=== PATIENT | male | born 1965 | race Hispanic/Latino ===

== ENCOUNTER 2017-06-22 10:55 | Observation (INO) | payer MEDICAID, OTHER ==
[2017-06-22 12:47] LABS: BASO # 0.1 K/uL (0.0-0.2); BASO % 0.6 % (0.0-2.0); EOS # 0.1 K/uL (0.0-0.7); EOS % 0.7 % (0.0-4.0); HEMOGLOBIN 14.5 g/dL (12.0-18.0); LYMPH # 1.6 K/uL (1.0-4.3); LYMPH % 10.1 % (20.0-40.0); MEAN CELL VOLUME 84.9 fl (80.0-94.0); MEAN CORPUSCULAR HEMOGLOBIN 28.5 pg (27.0-31.0); MEAN CORPUSCULAR HGB CONC 33.5 g/dL (33.0-37.0); MEAN PLATELET VOLUME 10.3 fl (7.2-11.7); MONO # 0.8 K/uL (0.0-0.8); MONO % 5.1 % (0.0-10.0); NEUT # 13.5 K/uL (1.8-7.0); NEUT % 83.5 % (50.0-75.0); NRBC % 0.1 % (0.0-0.0); RBC 5.11 Mil/uL (4.40-5.90); RED CELL DISTRIBUTION WIDTH 14.9 % (11.5-14.5); WHITE BLOOD COUNT 16.2 K/uL (4.8-10.8)
[2017-06-22 12:55] LABS: BLOOD UREA NITROGEN 20 mg/dl (9-20); CALCIUM 9.7 mg/dL (8.4-10.2); GFR AFRICAN-AMERICAN > 60; GFR NON-AFRICAN AMERICAN > 60
--- NOTE | 2017-06-22 13:06 | RAD ---
PROCEDURE: CHEST RADIOGRAPH, 1 VIEW HISTORY: chest pain COMPARISON: 2015 FINDINGS: LUNGS: Clear. PLEURA: No pneumothorax or pleural fluid seen. CARDIOVASCULAR: Heart is normal in size. Aorta is unchanged. No hilar enlargement seen. OSSEOUS STRUCTURES: No significant abnormalities. VISUALIZED UPPER ABDOMEN: Normal. OTHER FINDINGS: None. IMPRESSION: No active disease.
--- NOTE | 2017-06-22 15:11 | ED PDOC ---
HPI: Chest Pain Time Seen by Provider: 06/22/17 11:27 Chief Complaint (Nursing): Chest Pain Chief Complaint (Provider): Chest Pain History Per: Patient History/Exam Limitations: no limitations Onset/Duration Of Symptoms: Hrs Current Symptoms Are (Timing): Gone Now Severity: None Quality: "Pain" Associated Symptoms: denies: Nausea, Dyspnea Exacerbating Factors: None Alleviating Factors: None Additional Complaint(s): 51 year old male presents to the emergency department complaining of chest pain which began around 8 this morning. The patient states that after he woke up he began having left sided chest pain which radiated to his left arm. He states that the pain subsided 3 hours before he came to the emergency department. Patient states he has no history of chest pain and has never felt pain as severe as this. Denies fever, shortness of breath, cough, dizziness, leg swelling. Patient further reports that he recently moved to a new apartment 2 weeks ago and he has to climb 4 flights of stairs everyday. He states that after climbing the stairs he becomes very short of breath. Of note: Patient is usually seen by the [facility] but has not been there recently. Past Medical History Reviewed: Historical Data, Nursing Documentation, Vital Signs Vital Signs: Last Vital Signs Temp 98.3 F 06/23/17 13:00 Pulse 80 06/24/17 20:53 Resp 20 06/23/17 13:00 BP 140/88 06/23/17 13:00 Pulse Ox 95 06/24/17 20:53 - Medical History PMH: Kidney Stones Denies: Asthma, Bronchitis, CHF, COPD, HIV, Chronic Kidney Disease, Seizures - Surgical History Surgical History: Hernia Repair - Family History Family History: States: Unknown Family Hx - Social History Current smoker - smoking cessation education provided: Yes (Current Some Days Smoker) Ex-Smoker (has not smoked in the last 12 months): Yes Alcohol: Social Drugs: Other (yes) - Home Medications Home Medications: Ambulatory Orders Medication Instructions Recorded Aspirin [Ecotrin] 81 mg PO DAILY #30 tabec 06/23/17 amLODIPine [Norvasc] 5 mg PO DAILY #30 tab 06/23/17 - Allergies Allergies/Adverse Reactions: Allergies Allergy/AdvReac Type Severity Reaction Status Date / Time No Known Allergies Allergy Verified 02/18/15 08:48 ILIANA Risk Score for UA/NSTEMI - ILIANA Risk Score Age > 64: NO 3 or more CAD Risk Factors: NO Known CAD (Stenosis greater than 50%): NO Aspirin use in past 7 days: NO Severe Angina: YES EKG ST changes greater than 0.5mm: NO Positive Cardiac Marker: NO ILIANA Score: 1 Risk %: 5% Wells Criteria for PE - Wells Criteria for Pulmonary Embolism Clinical Signs and Symptoms of DVT: No P.E is #1 Diagnosis, or Equally Likely: No Heart Rate >100: No Immobilization at least 3 days;Surgery previous 4 weeks: No Previous, objectively diagnosed PE or DVT: No Hemoptysis: No Malignancy w/treatment within 6 months, or palliative: No Total Score: 0 Review of Systems Constitutional: Negative for: Fever, Chills Cardiovascular: Positive for: Chest Pain. Negative for: Palpitations Respiratory: Negative for: Shortness of Breath Musculoskeletal: Positive for: Other (denies leg swelling) Neurological: Negative for: Headache, Dizziness Physical Exam - Reviewed Nursing Documentation Reviewed: Yes Vital Signs Reviewed: Yes - Physical Exam Appears: Positive for: Non-toxic, No Acute Distress Head Exam: Positive for: ATRAUMATIC, NORMAL INSPECTION, NORMOCEPHALIC Skin: Positive for: Normal Color, Warm, Dry. Negative for: Rash Eye Exam: Positive for: Normal appearance, EOMI, PERRL. Negative for: Nystagmus ENT: Positive for: Normal ENT Inspection. Negative for: Nasal Congestion, Tonsillar Exudate, Tonsillar Swelling Neck: Positive for: Normal, Painless ROM, Supple Cardiovascular/Chest: Positive for: Regular Rate, Rhythm, Chest Non Tender. Negative for: Gallop, Murmur, Tachycardia, Irregularly Irregular Respiratory: Positive for: Normal Breath Sounds. Negative for: Crackles, Rales , Rhonchi, Wheezing, Respiratory Distress Gastrointestinal/Abdominal: Positive for: Normal Exam, Bowel Sounds, Soft. Negative for: Tenderness, Mass, Guarding, Rebound Back: Positive for: Normal Inspection. Negative for: L CVA Tenderness, R CVA Tenderness Extremity: Positive for: Normal ROM. Negative for: Tenderness, Deformity, Swelling Neurologic/Psych: Positive for: Alert, Oriented, Gait. Negative for: Motor/ Sensory Deficits - Laboratory Results Result Diagrams: 06/23/17 10:28 06/23/17 10:28 - ECG ECG Rhythm: Positive for: Normal QRS, Normal ST Segment, Sinus Rhythm, Nonspecific Changes (Non specific St changes) Rate: 80 O2 Sat by Pulse Oximetry: 95 (RA) Pulse Ox Interpretation: Normal Medical Decision Making Medical Decision Makin Initial Impression 51 year old male presenting with chest pain Differential: ACS, Pulmonary embolism other cardiac and pulmonary pathologies considered but not listed Initial Plan: * EKG * BMP * Troponin * Cardiology * Consult * CBC * CXR * Call Cardiology Consult * Reevaluation 1059 EKG performed: Normla sinus rhythm, normal QRS non specific ST changes, rats 80bpm 1304 PROCEDURE: Chest Xray HISTORY: chest pain COMPARISON: 2014 FINDINGS: LUNGS: Clear. PLEURA: No pneumothorax or pleural fluid seen. CARDIOVASCULAR: Heart is normal in size. Aorta is unchanged. No hilar enlargement seen. OSSEOUS STRUCTURES: No significant abnormalities. VISUALIZED UPPER ABDOMEN: Normal. OTHER FINDINGS: None. IMPRESSION: No active disease. [address] Ellis who agrees to admit patient to telemetry for chest pain. Patient was given aspirin. Chest Xray and labs reviewed. Documented by Jyoti Price acting as a scribe for Efren Maya MD. All medical record entries made by the Scribe were at my direction and personally dictated by me. I have reviewed the chart and agree that the record accurately reflects my personal performance of the history, physical exam, medical decision making, and the department course for this patient. I have also personally directed, reviewed, and agree with the discharge instructions and disposition. Disposition - Clinical Impression Clinical Impression: Chest pain - Patient ED Disposition Is Patient to be Admitted: Yes Discussed With : Enio Mackenzie Counseled Patient/Family Regarding: Studies Performed, Diagnosis - Disposition Disposition Time: 14:20 Condition: FAIR - Pt Status Changed To: Hospital Disposition Of: Observation - POA Present On Arrival: None
[2017-06-22] MEDS ORDERED: Pneumococcal 23-Valent Vaccine IM ONE (22:53)
--- NOTE | 2017-06-23 07:32 | CARD ---
APPROVED REPORT EKG Measurement Heart [id number] <Conclusion> Normal sinus rhythm Nonspecific ST abnormality Abnormal ECG
[2017-06-23] MEDS ORDERED: Enoxaparin 40 mg Syringe SC SCH (09:00)
--- NOTE | 2017-06-23 09:13 | CP.PCM.CON ---
History of Present Illness - History of Present Illness History of Present Illness: This 51-year-old man came into the emergency room complaining of left pectoral ache quite unconnected to any physical activity. The patient is a smoker who describes dyspnea on climbing 4 flights of stairs to get to his apartment but denies any episode of chest pain unconnected to this exertion. He is not hypertensive or diabetic and has not had any hospitalization for chest pain or myocardial infarction or symptoms of congestive cardiac failure. He denies any significant family history of vascular disease. His chest discomfort episode which was at rest lasted approximately half an hour and was not accompanied by any perspiration nausea vomiting or radiation into his jaw or arms. It resolved spontaneously before he arrived in the emergency room. On examination this is a middle aged man was able to lie virtually flat in bed and breathes comfortably at 16 breaths per minute and carry on a conversation. He was alert and awake. He was afebrile with a pulse rate of 68 bpm and regular and a blood pressure of 126/72 mmHg. His jugular venous pressure was not elevated and there was no edema or his lower extremity. The pedal pulses were well felt. There were no carotid bruits. The chest was mildly emphysematous. The first and second heart sounds are normal. There was no murmur or gallop. There were no rales. His abdomen was soft liver and spleen were not palpable. He is electrocardiogram showed sinus rhythm with nonspecific ST T changes (the T waves in lead 1 and lead to appeared biphasic.) No Q waves were detected on the electrocardiogram. His cardiac enzymes were negative for any evidence of myocyte injury. The rest of his labs consisting of CBC and complete metabolic profile were reviewed as well. Impression: Atypical chest pain with no evidence of acute coronary syndrome. I have strongly urged the patient to quit smoking. He can be cared for as an outpatient and should be allowed to return home taking an aspirin every day. I have instructed him to see his primary care physician and to arrange for a stress test. Past Patient History - Infectious Disease Hx of Infectious Diseases: None - Tetanus Immunizations Tetanus Immunization: Unknown - Past Medical History & Family History Past Medical History?: Yes - Past Social History Smoking Status: Heavy Smoker > 10 Cigarettes Daily - CARDIAC Hx Cardiac Disorders: No - PULMONARY Hx Respiratory Disorders: No - NEUROLOGICAL Hx Neurological Disorder: No - HEENT Hx HEENT Problems: No - RENAL Hx Chronic Kidney Disease: Yes Hx Kidney Stones: Yes - ENDOCRINE/METABOLIC Hx Endocrine Disorders: No - HEMATOLOGICAL/ONCOLOGICAL Hx Blood Disorders: No Hx AIDS: No Hx Human Immunodeficiency Virus (HIV): No - INTEGUMENTARY Hx Dermatological Problems: No - MUSCULOSKELETAL/RHEUMATOLOGICAL Hx Musculoskeletal Disorders: No Hx Falls: No - GASTROINTESTINAL Hx Gastrointestinal Disorders: Yes Other/Comment: hernia - GENITOURINARY/GYNECOLOGICAL Hx Genitourinary Disorders: No - PSYCHIATRIC Hx Psychophysiologic Disorder: No Hx Substance Use: No - SURGICAL HISTORY Hx Surgeries: Yes Hx Herniorrhaphy: No Other/Comment: Inguinal Hernia sx. Right foot sx due to bone spur. Lithotripsy - ANESTHESIA Hx Anesthesia: Yes Hx Anesthesia Reactions: No Hx Malignant Hyperthermia: No Meds Allergies/Adverse Reactions: Allergies Allergy/AdvReac Type Severity Reaction Status Date / Time No Known Allergies Allergy Verified 02/18/15 08:48 - Medications Medications: Current Medications Amlodipine Besylate (Norvasc) 5 mg PO DAILY MADYSON Enoxaparin Sodium (Lovenox) 40 mg SC DAILY MADYSON PRN Reason: Protocol Nitroglycerin (Nitrostat Sl Tab) 0.4 mg SL Q5M PRN PRN Reason: Other Last Admin: 06/23/17 03:13 Dose: 0.4 mg Results - Vital Signs Recent Vital Signs: Last Vital Signs Temp 98.6 F 06/23/17 08:00 Pulse 75 06/23/17 08:00 Resp 18 06/23/17 08:00 BP 148/91 H 06/23/17 08:00 Pulse Ox 97 06/23/17 08:00 - Labs Result Diagrams: 06/22/17 12:30 06/22/17 12:30 Labs: Laboratory Results - last 24 hr 06/22/17 06/22/17 06/22/17 12:30 12:30 20:46 WBC 16.2 H RBC 5.11 Hgb 14.5 Hct 43.4 MCV 84.9 D MCH 28.5 MCHC 33.5 RDW 14.9 H Plt Count 230 MPV 10.3 Neut % (Auto) 83.5 H Lymph % (Auto) 10.1 L [place] % (Auto) 5.1 Eos % (Auto) 0.7 Baso % (Auto) 0.6 Neut # (Auto) 13.5 H Lymph # (Auto) 1.6 [place] # (Auto) 0.8 Eos # (Auto) 0.1 Baso # (Auto) 0.1 Sodium 146 Potassium 4.2 Chloride 104 Carbon Dioxide 25 Anion Gap 21 H BUN 20 Creatinine 0.8 Est GFR ( Amer) > 60 Est GFR (Non-Af Amer) > 60 Random Glucose 100 Calcium 9.7 Troponin I < 0.0120 < 0.0120 TSH 3rd Generation 06/23/17 06/23/17 05:45 08:23 WBC RBC Hgb Hct MCV MCH MCHC RDW Plt Count MPV Neut % (Auto) Lymph % (Auto) [place] % (Auto) Eos % (Auto) Baso % (Auto) Neut # (Auto) Lymph # (Auto) [place] # (Auto) Eos # (Auto) Baso # (Auto) Sodium Potassium Chloride Carbon Dioxide Anion Gap BUN Creatinine Est GFR ( Amer) Est GFR (Non-Af Amer) Random Glucose Calcium Troponin I < 0.0120 TSH 3rd Generation 0.64
--- NOTE | 2017-06-23 10:24 | HP ---
CHIEF COMPLAINT: Chest pain. HISTORY OF PRESENT ILLNESS: This is a 51-year-old male who lives in [place], [place], who came here for breakfast and after breakfast, the patient started having chest pain, so the patient was brought in to Emergency Room and was admitted for further management. REVIEW OF SYSTEMS: Positive for chest pain. Review of systems otherwise is negative for headache, dizziness, syncope, loss of consciousness, shortness of breath, nausea, vomiting, diarrhea, constipation, any new joint or extremity pain or any new neurological symptoms. Review of systems of all other organ system is unremarkable. PAST MEDICAL HISTORY: Unremarkable. PERSONAL HISTORY: The patient is a [facility] resident. PAST SURGICAL HISTORY: Unremarkable. MEDICATIONS: The patient is not taking any current medications. ALLERGIES: THE PATIENT IS NOT ALLERGIC TO ANY MEDICATIONS. FAMILY HISTORY: Noncontributory. PHYSICAL EXAMINATION: GENERAL: The patient is a well-built, well-nourished 51-year-old male, in no acute distress. VITAL SIGNS: Temperature afebrile, pulse 88, respirations 18, and blood pressure . HEENT: Pupils reacting to light. No JVD. No thyromegaly. No lymphadenopathy. No nystagmus. Normocephalic, atraumatic skull. HEART: S1 and S2 normal and regular. No significant murmur, gallop or rub is heard. LUNGS: Shows good bilateral air exchange. No rales or rhonchi. ABDOMEN: Soft and nontender. No organomegaly. No fluid. Bowel sounds are plus and normal. EXTREMITIES: No edema. No calf swelling. No tenderness. No acute ischemia. BIOLOGICS SPECIALIST: The patient is alert, awake, and oriented x3. There is no sign of any acute gross focal motor or sensory neurological deficits. DIAGNOSTIC DATA: Available diagnostic data reviewed. Telemetry monitoring does not reveal significant arrhythmia. ADMITTING IMPRESSION: Chest pain, rule out acute coronary syndrome. PLAN: As ordered. Case and plan discussed with the patient. Enio Mackenzie MD
[2017-06-23 10:50] LABS: HEMOGLOBIN 16.3 g/dL (12.0-18.0); MEAN CORPUSCULAR HEMOGLOBIN 27.9 pg (27.0-31.0); MEAN CORPUSCULAR HGB CONC 33.3 g/dL (33.0-37.0); RBC 5.83 Mil/uL (4.40-5.90); RED CELL DISTRIBUTION WIDTH 15.1 % (11.5-14.5); WHITE BLOOD COUNT 15.3 K/uL (4.8-10.8)
[2017-06-23 10:51] LABS: BLOOD UREA NITROGEN 16 mg/dl (9-20); CALCIUM 9.6 mg/dL (8.4-10.2); GFR AFRICAN-AMERICAN > 60; GFR NON-AFRICAN AMERICAN > 60
[2017-06-23 13:12] VITALS: BP 140/88; RESP 20; TEMP 98.3
[2017-06-23 14:48] LABS: SQUAMOUS EPITHIAL < 1 /hpf (0-5); URINE BILIRUBIN NEGATIVE (NEGATIVE); URINE BLOOD LARGE (NEGATIVE); URINE CLARITY SLIGHTY-CLOUDY (Clear); URINE COLOR STRAW (YELLOW); URINE GLUCOSE (UA) NEG (Normal); URINE LEUKOCYTE ESTERASE NEG Leu/uL (Negative); URINE PROTEIN NEGATIVE (NEGATIVE); URINE UROBILINOGEN 0.2-1.0 mg/dL (0.2-1.0)
[2017-06-24 20:53] VITALS: PULSE 80; O2SAT 95
== END 2017-06-23 14:45 | disposition home or self-care (01) ==
LOC: H.ER 10:55 → SUPCPDRO 10:55 → H.ERHOLD 14:19 → H.TEL 18:34
PROVIDERS: ADMIT Internal Medicine; ATTEND Internal Medicine
DX: R07.89 Other chest pain (principal); F17.200 Nicotine dependence, unspecified, uncomplicated; N18.9 Chronic kidney disease, unspecified; Z79.82 Long term (current) use of aspirin; Z87.442 Personal history of urinary calculi; Z79.899 Other long term (current) drug therapy; R06.02 Shortness of breath
CPT/HCPCS: 36415; 71045; 80048; 81003; 82607; 84443; 84484; 85025; 85027; 87086; 93005; 99285; G0378; J1650